=== PATIENT | female | born 1970 | race Caucasian/White ===

== ENCOUNTER 2022-12-30 19:44 | Emergency (ER) | payer MEDICAID, OTHER ==
[~2022-12-30] VITALS: Ht 154.9 cm; Wt 55.4 kg
[2022-12-30 20:00] VITALS: PULSE 80; RESP 20; O2SAT 95
[2022-12-30 20:54] LABS: Basophils # (auto) 0 10 ^3/uL (0-0.2); Eosinophils # (auto) 0 10 ^3/uL (0-0.8); Eosinophils % (auto) 0.8 % (0.0-7.0); Hematocrit 37.7 % (36.0-46.0); Hemoglobin 12.9 g/dL (12.2-16.2); Lymphocytes # (auto) 0.4 10 ^3/uL (0.4-5.4); Lymphocytes % (auto) 17.9 % (10.0-50.0); Mean Corpuscular Hemoglobin 30.5 pg (28.0-32.0); Mean Corpuscular Hgb Conc. 34.1 g/dL (32.0-36.0); Mean Corpuscular Volume 89.5 fL (80.0-100.0); Monocytes # (auto) 0.3 10 ^3/uL (0-1.3); Monocytes % (auto) 14.7 % (0.0-12.0); Neutrophils # (auto) 1.4 10 ^3/uL (1.6-8.6); Neutrophils % (auto) 65.6 % (37.0-80.0); Nucleated Red Blood Cells % 0.1 %; Red Blood Cells 4.21 10^6/uL (4.0-5.20); Red Cell Distribution Width 13.8 % (11.8-14.3); White Blood Cell 2.1 10^3/uL (4.4-10.8)
[2022-12-30 21:09] LABS: Acetaminophen < 2.0 UG/ML (10.0-20.0); Alanine Aminotransferase 126 U/L (7-40); Alkaline Phosphatase 209 U/L (46-116); Anion Gap 6 (5-15); BUN/Creatinine Ratio 13.1 (10.0-20.0); Blood Urea Nitrogen 11 mg/dL (9-23); Calcium 8.8 mg/dL (8.7-10.4); Carbon Dioxide 24 mmol/L (20-30); Chloride 106 mmol/L (98-107); Glucose 110 mg/dL (74-106); Potassium 3.7 mmol/L (3.5-5.1); Sodium 136 mmol/L (136-145)
[2022-12-30 21:10] LABS: Albumin 3.9 g/dL (3.2-4.8); Aspartate Aminotransferase 162 U/L (13-40); Bilirubin, Total 0.2 mg/dL (0.2-1.0); Total Protein 6.3 g/dL (5.7-8.2)
[2022-12-30 21:12] LABS: Salicylate < 3.0 mg/dL (2.8-20.0)
[2022-12-30 21:33] LABS: INR 1.1 (0.9-1.15); Partial Thromboplastin Time 27.9 SEC (24.5-34.5); Prothrombin Time 11.5 sec (9.3-11.8)
[2022-12-30 21:39] LABS: Rapid Influenza A Negative (Negative); Rapid Influenza B Negative (Negative)
[2022-12-30 21:40] LABS: COVID19 ANTIGEN SOFIA FIA POSITIVE (NEGATIVE)
[2022-12-30] MEDS ORDERED: ACETAMINOPHEN 500 MG TAB PO ONE (22:00)
[2022-12-30] MEDS ORDERED: DOXYCYCLINE 100 MG TAB/CAP PO ONE (22:00)
[2022-12-30] MEDS ORDERED: IBUP-1454 PO (22:08)
[2022-12-30] MEDS ORDERED: DOXY-286 PO (22:08)
[2022-12-30] MEDS ORDERED: NIRM1TAB PO (22:08)
[2022-12-30] MEDS ORDERED: IBUPROFEN 600 MG TAB PO ONE (22:15)
[2022-12-30 22:23] VITALS: BP 93/54; PULSE 77; RESP 20; TEMP 99; O2SAT 98
== END 2022-12-30 23:00 | disposition home or self-care (01) ==
LOC: EDBD 19:44 → ER 19:44
DX: U07.1 COVID-19 (principal); R07.89 Other chest pain; F17.210 Nicotine dependence, cigarettes, uncomplicated; Z79.1 Long term (current) use of non-steroidal anti-inflammatories (NSAID); Z79.2 Long term (current) use of antibiotics; Z79.899 Other long term (current) drug therapy
CPT/HCPCS: 36415; 70450; 71045; 80053; 80329; 84484; 85025; 85610; 85730; 87426; 87804; 93005